=== PATIENT | male | born 1980 | race Caucasian/White ===

== ENCOUNTER → 2021-09-28 13:06 | Outpatient (CLI) | payer BC, SELFPAY ==
--- NOTE | ~2021-09-28 | MR_ITS ---
EXAMINATION: MR brain/brain stem wo/w con DATE: 09/28/2021 14:07 INDICATION: Memory impairment. TECHNIQUE: Magnetic resonance imaging (MRI) of the brain and brainstem was performed without and with 20 mL MultiHance intravenous contrast. Sequences included sagittal and axial T1-weighted FSE, axial diffusion-weighted FS EPI, axial T2*-weighted GRE, axial T2-weighted FLAIR Propeller, and axial T2-we ighted Propeller. Postcontrast sequences included axial and coronal T1-weighted FSE. Apparent diffusi on coefficient (ADC) maps were created. COMPARISON: None. FINDINGS: Metal artifact from the face obscures the anteroinferior brain on some sequences. There is no intracranial hemorrhage, acute infarction, or abnormal intracranial mass lesion. The ventricles ar e normal in size. The mastoid air cells are normal. IMPRESSION: 1. Normal brain. Reviewed, dictated and finalized at location A. NICAL ADMINISTRATOR IMPRESSION: 1. Normal brain.
[2021-09-28 13:45] LABS: Estimated Glomerular Filt Rate > 60
== END ==
PROVIDERS: Visit Provider Psychiatry & Neurology Psychiatry
DX: R41.3 Other amnesia (principal)
CPT/HCPCS: 70553; A9577